=== PATIENT | male | born 1995 | race Asian ===

== ENCOUNTER 2022-01-18 11:25 | Emergency (ER) | payer BC ==
[~2022-01-18] VITALS: Ht 177.8 cm; Wt 61.2 kg
[2022-01-18 11:41] VITALS: BP 142/79
--- NOTE | 2022-01-18 12:00 | NUR ---
RECEVED PT 26 YRS MALE CAME FROM HOME FOR DOG BITAT 0900 AM TODY IN LOWER LIPS MILD BLEEDING
--- NOTE | 2022-01-18 12:15 | NUR ---
EXAMINE BY DR. FERNANDEZ
[2022-01-18] MEDS ORDERED: AMOX-430 PO (12:24)
--- NOTE | 2022-01-18 12:30 | NUR ---
IRRIGATED WOUND BY EDT
--- NOTE | 2022-01-18 12:48 | NUR ---
Patient discharged to home in stable condition. Written and verbal after care instructions given. Patient verbalizes understanding of instruction.
== END 2022-01-18 12:54 | disposition home or self-care (01) ==
LOC: ER 11:34
DX: S01.511A Laceration without foreign body of lip, initial encounter (principal); W54.0XXA Bitten by dog, initial encounter; Y93.89 Activity, other specified; Y92.89 Other specified places as the place of occurrence of the external cause; Y99.8 Other external cause status